=== PATIENT | male | born 1935 | race Caucasian/White ===

== ENCOUNTER → 2018-10-02 | Outpatient (CLI) | payer OTHER | LOC: M.MRI 09-26 13:30 | DX: M75.122 Complete rotator cuff tear or rupture of left shoulder, not specified as traumatic (principal); S43.492A Other sprain of left shoulder joint, initial encounter; M19.012 Primary osteoarthritis, left shoulder; X58.XXXA Exposure to other specified factors, initial encounter; Y93.89 Activity, other specified; Y92.89 Other specified places as the place of occurrence of the external cause; Y99.8 Other external cause status ==

== ENCOUNTER → 2018-10-25 | Outpatient (CLI) | payer OTHER | LOC: M.CT 12:46 | DX: T14.8XXA Other injury of unspecified body region, initial encounter (principal); M19.012 Primary osteoarthritis, left shoulder; R53.1 Weakness; K72.90 Hepatic failure, unspecified without coma; X58.XXXA Exposure to other specified factors, initial encounter; Y93.89 Activity, other specified; Y92.89 Other specified places as the place of occurrence of the external cause; Y99.8 Other external cause status ==

== ENCOUNTER 2020-10-23 14:36 | Emergency (ER) | payer OTHER ==
[~2020-10-23] VITALS: Ht 170.2 cm; Wt 86.2 kg
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
[2020-10-23 14:52] LABS: ABSOLUTE LYMPHOCYTES 1.1 thou/uL (0.8-5.3); ABSOLUTE MONOCYTES 0.4 thou/uL (0.0-1.2); ABSOLUTE NEUTROPHILS 3.3 thou/uL (1.6-8.1); BASOPHILS 0.8 %; EOSINOPHILS 0.9 %; HEMATOCRIT 41.8 % (42.0-52.0); HEMOGLOBIN 14.4 gm/dL (14.0-18.0); MCH 32.6 pg (26.0-34.0); MCHC 34.4 g/dL (28.0-37.0); MCV 94.8 fL (80.0-100.0); MONOCYTES 8.4 %; MPV 7.3 fl. (7.2-11.1); NUCLEATED RBCS 0 /100WBC; PLATELET COUNT* 167 thou/uL (150-400); POLYS 67.9 %; RBC 4.41 mil/uL (4.50-6.00); RDW-CV 12.8 % (10.5-14.5); WBC 4.9 thou/uL (4.0-11.0)
[2020-10-23 15:00] LABS: APTT 22.2 Seconds (25.0-31.3); PROTIME 10.5 Seconds (9.20-11.50)
[2020-10-23 15:08] LABS: CALCIUM 8.6 mg/dL (8.5-10.1)
[2020-10-23 15:13] LABS: ALBUMIN 3.5 g/dL (3.4-5.0); TOTAL BILIRUBIN 0.3 mg/dL (<0.1-1.0); TOTAL PROTEIN 7.1 g/dL (6.4-8.2)
[2020-10-23] MEDS ORDERED: KEFLEX500 M1 PO (15:43)
[2020-10-23] MEDS ORDERED: NORCO 5-325 TA1 EAC2 PO (15:43)
[2020-10-23 16:20] VITALS: BP 159/81
--- NOTE | 2020-10-24 13:12 | EKG ---
[place] [address] ELECTROCARDIOGRAM REPORT Name: ELISHA QUINTANA Room: [facility]#: [id number] Admission: 10/23/20 Attend Phys: Discharge: 10/23/20 Date of : 35 Date of Service: 10/23/20 1441 Report #: [id number] THIS REPORT FOR: //name// [facility] ED Test Date: 2020-10-23 Test Time: 14:41:11 Pat Name: ELISHA QUINTANA Department: Room: Gender: [employer]: : 1935 Requested By: Artur Everett Order Number: [id number] MD: eJfry Owens Measurements Intervals [place] Rate: 94 P: 34 ME: 177 QRS: -51 QRSD: 109 T: 20 QT: 357 QTc: 447 Interpretive Statements Sinus rhythm Atrial premature complex Left anterior fascicular block abnormal R-wave progression, late transition Borderline T wave abnormalities No previous ECG available for comparison Electronically Signed On 10-24-2020 13:12:38 COATING TECHNICIAN by Jefry Owens [email or web address] <ELECTRONICALLY SIGNED> By: Jefry Owens MD, FACC 10/24/20 1312 1441 1441 Jefry Owens MD, FACC /EPI
== END 2020-10-23 16:20 | disposition home or self-care (01) ==
LOC: M.ERS 14:36
PROVIDERS: Family Medicine
DX: S51.002A Unspecified open wound of left elbow, initial encounter (principal); S31.109A Unspecified open wound of abdominal wall, unspecified quadrant without penetration into peritoneal cavity, initial encounter; Z90.49 Acquired absence of other specified parts of digestive tract; Z96.612 Presence of left artificial shoulder joint; X99.1XXA Assault by knife, initial encounter; Y93.89 Activity, other specified; Y92.89 Other specified places as the place of occurrence of the external cause; Y99.8 Other external cause status